=== PATIENT | female | born 1995 ===

== ENCOUNTER 2016-05-02 11:46 | Emergency (ER) | payer BC ==
[2016-05-02 11:55] VITALS: BP 109/73
[2016-05-02] MEDS ORDERED: Albuterol HFA INHALER* 8 gm MDI INH PRN (13:38)
[2016-05-02] MEDS ORDERED: Albuterol 2.5 MG/3 ML NEB.SOL* (0.083%) INH ONE (13:38)
--- NOTE | 2016-05-02 14:49 | RAD ---
HISTORY: Shortness of breath, congestion COMPARISONS: None VIEWS: 2: Frontal dual-energy and lateral views of the chest. FINDINGS: CARDIOMEDIASTINAL SILHOUETTE: The cardiomediastinal silhouette is normal. PARIS: The paris are normal. PLEURA: The costophrenic angles are sharp. No pleural abnormalities are noted. LUNG PARENCHYMA: The lungs are clear. ABDOMEN: The upper abdomen is clear. There is no subphrenic gas. BONES AND SOFT TISSUES: No bone or soft tissue abnormalities are noted. OTHER: None. IMPRESSION: NO ACTIVE CARDIOPULMONARY DISEASE.
[2016-05-02] MEDS ORDERED: Ciproflox/Dexameth OTIC.SUSP* 7.5 ML BTL BOTH EARS PRN (15:10)
[2016-05-02] MEDS ORDERED: Neomyc/Polym/HC 1% OTIC SUSP* **OTIC BOTH EARS ONE (15:12)
--- NOTE | 2016-05-02 17:27 | ED ---
Influenza-Like Illness - HPI Summary HPI Summary: Patient presents with bilateral ear pain, cough and chest congestion that has not improved over 2 weeks. She denies history of asthma, fevers, chills, N/V/D. She is visiting from [place] and will be in country for another 10 days. She denies GALVEZ, CP, or back pain but can get SOB with exertion. - History of Current Complaint Chief Complaint: EDUpperRespComplaint Hx Obtained From: Patient, [employer] Onset/Duration: Gradual Onset Severity: Moderate Associated Signs & Symptoms: Cough, Sore Throat, Nasal Congestion Related Hx: Possible Flu/Infectious Exposure - Allergy/Home Medications Allergies/Adverse Reactions: Allergies Allergy/AdvReac Type Severity Reaction Status Date / Time No Known Allergies Allergy Verified 05/02/16 11:55 PMH/Surg Hx/FS Hx/Imm Hx Previously Healthy: Yes Infectious Disease History: No Infectious Disease History: Reports: Traveled Outside the [place] in Last 30 Days - Family History Known Family History: Positive: None - Social History Occupation: Employed Full-time Lives: With Family Alcohol Use: None Substance Use Type: Reports: None Smoking Status (MU): Never Smoked Tobacco Review of Systems Negative: Fever, Chills Positive: Ear Ache, Nasal Discharge. Negative: Sore Throat Negative: Chest Pain Positive: Shortness Of Breath, Cough Negative: Abdominal Pain, Vomiting, Diarrhea, Nausea Negative: Myalgia Negative: Bruising Negative: Headache, Weakness, Paresthesia All Other Systems Reviewed And Are Negative: Yes Physical Exam Triage Information Reviewed: Yes Vital Signs On Initial Exam: Initial Vitals Temp Pulse Resp BP Pulse Ox 98.6 F 111 16 109/73 99 05/02/16 11:51 05/02/16 11:51 05/02/16 11:51 05/02/16 11:51 05/02/16 11:51 Vital Signs Reviewed: Yes Appearance: Positive: Well-Appearing, No Pain Distress, Well-Nourished Skin: Positive: Warm, Skin Color Reflects Adequate Perfusion, Dry, Soft Head/Face: Positive: Normal Head/Face Inspection Eyes: Positive: EOMI, JOSIE, Conjunctiva Clear ENT: Positive: Hearing grossly normal, Pharynx normal, TMs normal - bilateral ear canal erythema with pain on exam. Negative: Tonsillar swelling, Tonsillar exudate Neck: Positive: Supple, Nontender, No Lymphadenopathy Respiratory/Lung Sounds: Positive: Clear to Auscultation, Breath Sounds Present Cardiovascular: Positive: RRR Abdomen Description: Positive: Nontender, Soft Bowel Sounds: Positive: Present Musculoskeletal: Positive: Strength/ROM Intact. Negative: Edema Left, Edema Right Neurological: Positive: Sensory/Motor Intact, Alert, Oriented to Person Place, Time, NV Bundle Intact Distally, Normal Gait Psychiatric: Positive: Affect/Mood Appropriate AVPU Assessment: Alert Diagnostics - Vital Signs Vital Signs Temp Pulse Resp BP Pulse Ox 05/02/16 14:10 95 14 98 05/02/16 11:51 98.6 F 111 16 109/73 99 - Laboratory Lab Statement: Any lab studies that have been ordered have been reviewed, and results considered in the medical decision making process. - Radiology No standard instances Xray Interpretation: No Acute Changes Radiology Interpretation Completed By: Radiologist Re-Evaluation - Re-Evaluation First Eval Re-Evaluation Time: 14:00 Change: Improved - Patient reports improved breathing with albuterol treatment Flu Symptom Course/Dx - Diagnoses Differential Diagnosis/HQI/PQRI: Positive: Bronchitis, Influenza, Pneumonia, RSV , Upper Respiratory Infection Provider Diagnoses: Otitis externa, Viral syndrome Discharge - Discharge Plan Condition: Stable Disposition: HOME Prescriptions: Sszjqewe-Oejpijbwu-At (Otic) [Sammy/Polymyxin/Hc [id number]] 4 drop OT Q6H #1 kandi Patient Education Materials: Otitis Externa (ED), Viral Syndrome (ED) Additional Instructions: Please use the medication provided to help with your symptoms. Return to the emergency department if your symptoms worsen.
--- NOTE | 2016-05-06 11:29 | PN ---
Progress Note - Progress Note Note: Pharmacy called stating patient with urgent rx voucher awaiting prescription for tulio/poly/HC but prescription was never sent. Provider sent prescription - wrote "affected ear" - as note was not completed to state which ear was affected. Will confer with provider (Zac).
== END 2016-05-02 15:55 | disposition home or self-care (01) ==
LOC: ED 11:46
DX: H60.90 Unspecified otitis externa, unspecified ear (principal); B34.9 Viral infection, unspecified
CPT/HCPCS: 71020; 94640; 99282; A9270-GY